=== PATIENT | female | born 1975 | race Caucasian/White ===

== ENCOUNTER 2020-08-11 16:03 | Observation (INO) ==
[2020-08-11] MEDS ORDERED: Famotidine 20 MG/2 ML VIAL IVP ONE (17:12)
[2020-08-11] MEDS ORDERED: methylPREDNISolone 125 MG/2 ML VIAL IVP ONE (17:12)
[2020-08-11] MEDS ORDERED: EPINEPHrine 1 MG/ML VIAL IM ONE ×2 (17:13→22:05)
[2020-08-11 22:42] LABS: Basophils % 0.2 %; Eosinophils % 0.1 %; Hematocrit 40.6 % (35.3-44.9); Hemoglobin 13.6 g/dL (11.5-15.4); Immature Granulocytes % 0.6 % (0-4); Lymphocytes # 0.7 K/mcL (0.6-4.6); Lymphocytes % 5.6 %; Mean Corpuscular HGB Conc 33.5 g/dL (31.6-35.5); Mean Corpuscular Hemoglobin 28.4 pg (28.0-33.3); Mean Corpuscular Volume 84.8 fL (83.0-100.0); Mean Platelet Volume 9.1 fL (9.4-12.4); Monocytes # 0.2 K/mcL (0.0-1.3); Monocytes % 1.4 %; Neutrophils # 11.7 K/mcL (1.6-8.9); Platelet Count 281 K/mcL (140-400); Red Blood Count 4.79 M/mcL (3.82-4.97); Red Cell Distribution Width 13.2 % (11.5-14.5); Segmented Neutrophils % 92.1 %; White Blood Count 12.7 K/mcL (4.3-11.1)
[2020-08-11 23:00] LABS: BUN/Creatinine Ratio 19 (6-26); Blood Urea Nitrogen 12 mg/dL (6-20); Calcium 9.2 mg/dL (8.6-10.3); Carbon Dioxide 23 mEq/L (23-29); Chloride 98 mEq/L (98-107); Glucose 272 mg/dL (70-105); Osmolality,Calculated 285 (280-300); Potassium 3.7 mEq/L (3.5-5.1); Sodium 133 mEq/L (136-145); eGFR For African Americans > 60 (> 60); eGFR For Non-African Americans > 60 (> 60)
[2020-08-12] MEDS ORDERED: Ondansetron ODT 4 MG TAB.RAPDIS SL PRN (00:41)
[2020-08-12] MEDS ORDERED: Acetaminophen 325 MG TABLET PO PRN (00:41)
[2020-08-12] MEDS ORDERED: Naloxone 0.4 MG/ML INJ IVP PRN (00:41)
[2020-08-12] MEDS ORDERED: *HR* Dextrose 50 % in Water (Vial) 50 ML VIAL IVP PRN (00:43)
[2020-08-12] MEDS ORDERED: Dextrose Gel 15 GM/37.5 ML TUBE PO PRN ×2 (00:43)
[2020-08-12] MEDS ORDERED: D5% in Water 1,000 ML IVC PRN (00:43)
[2020-08-12] MEDS: Insulin LISPRO 300 UNITS/3 ML VIAL SUBQ SCH ×4 (01:06→12:22)
[2020-08-12] MEDS ORDERED: Ipratropium/Albuterol Neb 3 ML IH PRN (01:46)
[2020-08-12 02:11] LABS: Basophils % 0.1 %; Hematocrit 40.9 % (35.3-44.9); Hemoglobin 13.6 g/dL (11.5-15.4); Immature Granulocytes % 0.4 % (0-4); Lymphocytes # 0.6 K/mcL (0.6-4.6); Lymphocytes % 5.5 %; Mean Corpuscular HGB Conc 33.3 g/dL (31.6-35.5); Mean Corpuscular Hemoglobin 28.3 pg (28.0-33.3); Mean Platelet Volume 9.3 fL (9.4-12.4); Monocytes # 0.1 K/mcL (0.0-1.3); Monocytes % 0.6 %; Neutrophils # 10.9 K/mcL (1.6-8.9); Platelet Count 270 K/mcL (140-400); Red Blood Count 4.81 M/mcL (3.82-4.97); Red Cell Distribution Width 13.2 % (11.5-14.5); Segmented Neutrophils % 93.4 %; White Blood Count 11.6 K/mcL (4.3-11.1)
[2020-08-12 02:35] LABS: BUN/Creatinine Ratio 19 (6-26); Blood Urea Nitrogen 11 mg/dL (6-20); Carbon Dioxide 21 mEq/L (23-29); Chloride 99 mEq/L (98-107); Glucose 285 mg/dL (70-105); Magnesium 1.7 mg/dL (1.6-2.6); Osmolality,Calculated 288 (280-300); Phosphorous 3.2 mg/dL (2.7-4.5); Potassium 3.7 mEq/L (3.5-5.1); Sodium 134 mEq/L (136-145); eGFR For African Americans > 60 (> 60); eGFR For Non-African Americans > 60 (> 60)
[2020-08-12 02:55] LABS: Estimated Average Glucose 160 mg/dl; Hemoglobin A1C 7.2 %
[2020-08-12 15:29] VITALS: BP 128/74
[2020-08-12] MEDS ORDERED: Insulin LISPRO 300 UNITS/3 ML VIAL SUBQ SCH (21:00)
== END 2020-08-12 17:59 | disposition home or self-care (01) ==
LOC: EMEROOARM 16:03 → 3BNU 16:03
PROVIDERS: ADMIT Student in an Organized Health Care Education/Training Program; ATTEND Student in an Organized Health Care Education/Training Program